=== PATIENT | female | born 1970 | race Caucasian/White ===

== ENCOUNTER 2017-09-03 15:21 | Outpatient (CLI) | payer OTHER ==
--- NOTE | 2017-09-10 10:23 | MMO ---
BILATERAL SCREENING MAMMOGRAMS: DATE: 09/03/17. HISTORY: A 46-year-old female patient presenting for screening mammography. This study is also interpreted with the assistance of computer-aided detection. COMPARISON: Studies obtained from [facility] on 11/19/13 and 12/24/14. FINDINGS: Scattered fibroglandular densities are seen in each breast. There are punctate benign-appearing calc ifications again seen in the right breast. Intramammary lymph nodes are seen in the upper outer left breast similar to prior exam. No new dominant mass or suspicious grouping of microcalcifications is seen in either breast. IMPRESSION: BI-RADS category 2, benign findings. Routine annual mammographic screening is recommended. BIRADS 2: Benign Finding(s) Routine annual screening mammography (for women over age 40) POS: EZEQUIEL
== END 2017-09-03 15:22 | disposition home or self-care (01) ==
LOC: SCSMAMMO 15:21
PROVIDERS: ATTEND Family Medicine
DX: Z12.31 Encounter for screening mammogram for malignant neoplasm of breast (principal)
CPT/HCPCS: 77067

== ENCOUNTER 2019-03-12 06:48 | Day surgery (SDC) | payer OTHER ==
[2019-03-11 10:48] VITALS: BMI 26.7
[2019-03-12] MEDS ORDERED: Lidocaine 1% PF 5 ML VIAL ONE (09:43)
[2019-03-12] MEDS ORDERED: PROPOFOL 200 MG/20 ML VIAL ONE (09:43)
--- NOTE | 2019-03-12 10:26 | OP ---
DATE OF PROCEDURE: 03/12/2019 PROCEDURE PERFORMED: Colonoscopy. PREMEDICATION: Given by Anesthesiology Department. PREPROCEDURE DIAGNOSES: 1. History of colon polyps. 2. Family history of colon cancer in second-degree relative. POSTPROCEDURE DIAGNOSIS: Normal colon exam. DESCRIPTION OF PROCEDURE: Written consents were obtained prior to procedure. After adequate sedation, rectal exam performed was normal. The endoscope was advanced to the cecum. The quality of the bowel prep was good. The cecum, ascending colon, hepatic flexure, transverse colon, splenic flexure, descending colon, and rectosigmoid colon all appeared normal. Retroflexion did not show any abnormality. The patient tolerated the procedure well. ASSESSMENT: Normal colonoscopy. RECOMMENDATION: Repeat colon screening in 10 years as her previous history of polyp was hyperplastic. Job ID: [id number]
--- NOTE | 2019-03-12 17:02 | OP ---
DATE OF PROCEDURE: 03/12/2019 PROCEDURE PERFORMED: Esophagogastroduodenoscopy. PREMEDICATION: Given by Anesthesiology Department. PREPROCEDURE DIAGNOSES: 1. Gastroesophageal reflux disease. 2. Symptoms not controlled on medication (ranitidine 150 mg b.i.d.). POSTPROCEDURE DIAGNOSIS: Normal upper endoscopy. DESCRIPTION OF PROCEDURE: Written consents were obtained prior to procedure. After adequate sedation, forward-viewing endoscope was advanced down the stomach under direct vision to the third portion of duodenum. The duodenum appeared normal. The bulb appeared normal. The pylorus was patent. The gastric antrum, body, fundus, and cardia all appeared normal. Retroflexion did not show any abnormality or hiatal hernia. The GE junction with regular Z-line is located at 36 cm from the incisors. The lower, mid, and upper esophagus appeared normal. The instrument was then fully removed. The patient tolerated the procedure well. ASSESSMENT: Normal upper endoscopy. RECOMMENDATION: 1. Start pantoprazole 40 mg p.o. daily. 2. Anti-reflux regimen. Job ID: [id number]
== END 2019-03-12 11:35 | disposition home or self-care (01) ==
LOC: SDC 06:48
PROVIDERS: ATTEND Internal Medicine Gastroenterology
DX: Z12.11 Encounter for screening for malignant neoplasm of colon (principal); K21.9 Gastro-esophageal reflux disease without esophagitis; Z79.899 Other long term (current) drug therapy; Z80.0 Family history of malignant neoplasm of digestive organs; Z88.5 Allergy status to narcotic agent; Z86.010 Personal history of colon polyps; Z91.048 Other nonmedicinal substance allergy status
CPT/HCPCS: J2001; J2704

== ENCOUNTER 2019-03-15 20:30 | Outpatient (CLI) | payer OTHER | END 2019-03-15 20:31 | disposition home or self-care (01) | LOC: SLEEPLAB 20:30 | PROVIDERS: ATTEND Family Medicine | DX: G47.33 Obstructive sleep apnea (adult) (pediatric) (principal); G47.00 Insomnia, unspecified; F41.9 Anxiety disorder, unspecified; F32.9 Major depressive disorder, single episode, unspecified; R53.83 Other fatigue; G47.10 Hypersomnia, unspecified | CPT/HCPCS: 95810 ==

== ENCOUNTER 2019-06-06 12:31 | Inpatient (IN) | payer OTHER ==
[2019-06-06 12:56] LABS: #Basophils 0.1 thou/uL (0.0-0.2); #Eosinphils 0.2 thou/uL (0.0-0.7); #Lymphocytes 2.7 thou/uL (1.20-3.40); #Monocytes 0.9 thou/uL (0.11-0.59); #Neutrophils 5.1 thou/uL (1.40-6.50); %Basophils 0.8 % (0.0-1.0); %Eosinophils 2.4 % (0.0-10.0); %Lymphocytes 29.8 % (21.0-51.0); %Monocytes 10.1 % (0.0-10.0); %Neutrophils 56.9 % (42.0-75.0); Hemoglobin 13.7 g/dL (12.0-16.0); Mean Corpuscular HGB CONC 34.3 g/dL (32.0-36.0); Mean Corpuscular Hemoglobin 32.3 pg (27.0-31.0); Mean Platelet Volume 7.4 fL (7.4-10.4); Platelet Count 346 thou/uL (130-400); RBC Distribution Width 11.6 % (11.5-14.5); Red Blood Cell (RBC) Count 4.24 mill/uL (4.20-5.40)
[2019-06-06 13:16] LABS: ALT (SGPT) 20 U/L (8-55); AST (SGOT) 21 U/L (5-34); Albumin 4.4 g/dL (3.5-5.0); Alkaline Phosphatase 94 U/L (40-110); Anion Gap 11 mmol/L (10-20); BUN (Urea Nitrogen) 11 mg/dL (7.0-18.7); Bilirubin, Total 0.3 mg/dL (0.2-1.2); Calc. Creatinine Clearance 0 mL/min (70-130); Calcium 9.6 mg/dL (7.8-10.44); Carbon Dioxide 30 mmol/L (22-29); Chloride 98 mmol/L (98-107); Estimated GFR-MDRD 74; Globulin 2.9 g/dL (2.4-3.5); Glucose 92 mg/dL (70-105); Protein, Total 7.3 g/dL (6.0-8.3); Sodium 137 mmol/L (136-145)
[2019-06-06 13:22] LABS: Potassium 2.1 mmol/L (3.5-5.1)
[2019-06-06] MEDS ORDERED: Potassium Chloride 20 MEQ TAB ONE (13:33)
[2019-06-06] MEDS ORDERED: Potassium Chloride 40 MEQ in Sodium Chloride 0.9% 250 ML 250 ML IVPB SCH (14:00)
--- NOTE | 2019-06-06 14:01 | RAD ---
XR Chest 1 View Portable HISTORY: Dyspnea COMPARISON: 01/10/2012 FINDINGS: The heart size is normal. The lungs are well expanded without focal areas of consolidation, pneumothorax or pleural effusions. IMPRESSION: No radiographic evidence of acute cardiopulmonary process.
[2019-06-06 17:01] LABS: Troponin I Less than 0.010 ng/mL (< 0.028)
[2019-06-06] MEDS ORDERED: Acetaminophen 325 MG TAB PO PRN (17:06)
--- NOTE | 2019-06-06 17:47 | HP ---
PRIMARY CARE PROVIDER: Dr. Jose Posada. CHIEF COMPLAINT: Low potassium. HISTORY OF PRESENT ILLNESS: Ms. Grant Brown is a pleasant 48-year-old lady, who was seen at [facility] on June 06, 2019, after she was sent to the emergency room by her textile supervisor. She reports that over the last several months, she has been feeling generalized weakness. She denies any other complaints. She was seen by Nephrology Service as outpatient and was found to have low potassium. She had investigations done to look into the etiology of low potassium, but so far there is no clear etiology. She was found to have ongoing low potassium and was advised by her textile supervisor to go to the emergency room. REVIEW OF SYSTEMS: All systems were reviewed and found to be negative except for the pertinent positives mentioned above. PAST MEDICAL HISTORY: 1. Anxiety. 2. Hypothyroidism. PAST SURGICAL HISTORY: 1. Cholecystectomy. 2. Hysterectomy. PSYCHIATRIC HISTORY: 1. Anxiety. 2. Depression. SOCIAL HISTORY: The patient is an ex-smoker. She denies alcohol use or recreational drug use. FAMILY HISTORY: Significant for diabetes mellitus. ALLERGIES: MORPHINE, ADHESIVE, AND LATEX GLOVES. CURRENT MEDICATIONS: 1. Pantoprazole 40 mg daily. 2. Atorvastatin 10 mg at bedtime. 3. Sertraline 50 mg daily. 4. Ranitidine 150 mg daily. 5. Bupropion 150 mg daily. PHYSICAL EXAMINATION: GENERAL: On examination, Ms. Grant Brown is awake and alert, not in acute distress. VITAL SIGNS: Blood pressure is 105/67, pulse 77, respiratory rate 16, and oxygen saturation 98% on room air. She is afebrile. EYES: No scleral icterus. No conjunctival pallor. ENT: Moist mucosal membranes. No oropharyngeal erythema or exudates. NECK: Supple, nontender. Trachea is midline. RESPIRATORY: Accessory muscles of breathing are not active. Chest wall movements are symmetric bilaterally. Lungs are clear to auscultation without wheeze, rhonchi, or crepitations. CARDIOVASCULAR: S1 and S2 are heard, regular. Peripheral pulses palpable. ABDOMEN: Soft, nontender. Bowel sounds are heard. NEUROLOGIC: Cranial nerves 2 through 12 are intact. MUSCULOSKELETAL: Power is 5/5 in all 4 extremities. SKIN: No rashes or subcutaneous nodules. LYMPHATIC: No cervical lymphadenopathy. PSYCHIATRIC: Normal mood, normal affect. The patient is oriented to person, place, and time. LABORATORY AND DIAGNOSTIC DATA: Ms. Grant Brown's labs and investigations were reviewed. Electrocardiogram by my review shows normal sinus rhythm, with lateral ST-segment depressions. Chest x-ray by my review does not show any pulmonary infiltrates. She has unremarkable CBC, normal sodium, decreased potassium of 2.1, elevated carbon dioxide of 30, and unremarkable LFTs. Magnesium is normal at 2.1. Troponin-I is normal. ASSESSMENT AND PLAN: Ms. Grant Brown is a pleasant 48-year-old lady, who was seen at [facility] on June 06, 2019. Her problem list includes: 1. Hypokalemia: Ms. Grant Brown is presenting with severe hypokalemia. She has received 40 mEq of potassium intravenously and 60 mEq orally. These medications will be continued every 3 hours, with frequently checking potassium levels. The treatments will be discontinued after her potassium is around 3.2. Nephrology Service will be consulted for opinion and help with management. 2. Dyslipidemia: Continue atorvastatin. 3. Anxiety and depression: Continue bupropion and sertraline. 4. Gastroesophageal reflux disease: Continue PPI. Many thanks for allowing me to participate in your patient's care. Please feel free to contact me with any questions or concerns. LEVEL OF RISK: High. LEVEL OF COMPLEXITY: High. Job ID: [id number]
[2019-06-06 18:06] LABS: Anion Gap 12 mmol/L (10-20); BUN (Urea Nitrogen) 12 mg/dL (7.0-18.7); Calc. Creatinine Clearance 0 mL/min (70-130); Carbon Dioxide 28 mmol/L (22-29); Chloride 99 mmol/L (98-107); Estimated GFR-MDRD 83; Glucose 125 mg/dL (70-105); Sodium 137 mmol/L (136-145)
[2019-06-06 18:07] LABS: Potassium 2.3 mmol/L (3.5-5.1)
[2019-06-06 19:26] LABS: Troponin I Less than 0.010 ng/mL (< 0.028)
[2019-06-06 19:34] LABS: Potassium 2.6 mmol/L (3.5-5.1)
[2019-06-06 19:43] VITALS: BMI 25.2
[2019-06-06] MEDS: Potassium Chloride 40 MEQ in Sodium Chloride 0.9% 250 ML 250 ML IVPB SCH (22:21)
[2019-06-06] MEDS: Potassium Chloride 20 MEQ TAB PO SCH ×2 (22:22→22:26)
[2019-06-06 23:28] LABS: Potassium 2.3 mmol/L (3.5-5.1)
--- NOTE | 2019-06-07 01:15 | CON ---
DATE OF CONSULTATION: REASON FOR CONSULTATION: Hypokalemia. HISTORY OF PRESENTING ILLNESS: This is a very pleasant 48-year-old female, who was admitted to the hospital for severe hypokalemia. The patient's potassium was 2. The patient has had a workup done by Dr. Gustafson. PAST MEDICAL HISTORY: Significant for history of cholecystectomy, cortisol insufficiency, chronic hypokalemia, Crohn disease. SOCIAL HISTORY: No alcohol or drug use. FAMILY HISTORY: Negative for ESRD. ALLERGIES: REVIEWED. HOME MEDICATION: List reviewed. Hospital medication reviewed. REVIEW OF SYSTEMS: 15-point review of systems was performed, negative except for positives noted above. GENERAL: HEAD: NECK: No swelling or lumps. NOSE: No epistaxis or discharge. EYES: No diplopia or pain. RESPIRATORY: CARDIOVASCULAR: GASTROINTESTINAL: /INTEGRATIVE MEDICINE PHYSICIAN: MUSCULOSKELETAL: No joint pain. NEUROPSYCHIATIC SYSTEMS: No suicidal ideation. No ideation. SKIN: Denies any rash or ulcer. CONSTITUTIONAL: No fever or chills. PHYSICAL EXAMINATION: CONSTITUTIONAL: The patient is awake and alert. VITAL SIGNS: Afebrile, pulse 75, breathing 16, blood pressure 130/70. GENERAL APPEARANCE AND MENTAL STATUS: Fair. HEAD/NECK: Normocephalic. Atraumatic. EYES: EOMI. No deformity. EARS: Clear. No ulcers. NOSE: Intact. No lesions. MOUTH: Clear. No discharge. THROAT: Clear. No exudate. LUNGS: Clear. No crackles. CARDIAC: S1, S2. No rub. ABDOMEN: Benign. Bowel sounds positive. GENITALIA/RECTUM: Zaragoza absent. BACK/EXTREMITIES: Edema 0+. NEUROLOGICAL: Alert and motor intact. SKIN: LYMPHATICS: LABORATORY DATA: Labs show potassium is 2.1. ASSESSMENT: Hypokalemia with alkalosis as well as elevated creatinine level with normal aldosterone level, could be possible Bartter or Gitelman syndrome versus enzymatic deficiency for cortisol synthesis. Basic workup for Bartter and Gitelman is pending. Hypertension not present. Medication based on GFR, appropriate. Job ID: [id number]
[2019-06-07 02:58] LABS: #Basophils 0.1 thou/uL (0.0-0.2); #Eosinphils 0.2 thou/uL (0.0-0.7); #Lymphocytes 2.2 thou/uL (1.20-3.40); #Monocytes 0.8 thou/uL (0.11-0.59); #Neutrophils 3.7 thou/uL (1.40-6.50); %Basophils 0.7 % (0.0-1.0); %Eosinophils 3.1 % (0.0-10.0); %Lymphocytes 32.3 % (21.0-51.0); %Neutrophils 52.9 % (42.0-75.0); Hemoglobin 11.7 g/dL (12.0-16.0); Mean Corpuscular HGB CONC 35.8 g/dL (32.0-36.0); Mean Corpuscular Hemoglobin 33.5 pg (27.0-31.0); Mean Corpuscular Volume 93.6 fL (78.0-98.0); Mean Platelet Volume 7.3 fL (7.4-10.4); Platelet Count 278 thou/uL (130-400); RBC Distribution Width 11.7 % (11.5-14.5); Red Blood Cell (RBC) Count 3.49 mill/uL (4.20-5.40)
[2019-06-07 03:17] LABS: Anion Gap 10 mmol/L (10-20); BUN (Urea Nitrogen) 9 mg/dL (7.0-18.7); Calc. Creatinine Clearance 135 mL/min (70-130); Calcium 8.3 mg/dL (7.8-10.44); Carbon Dioxide 26 mmol/L (22-29); Chloride 107 mmol/L (98-107); Estimated GFR-MDRD Greater than 90; Glucose 96 mg/dL (70-105); Sodium 140 mmol/L (136-145)
[2019-06-07] MEDS ORDERED: Ondansetron PF 4 MG/2 ML Vial SLOW IVP PRN (04:06)
[2019-06-07] MEDS: Potassium Chloride 40 MEQ in Sodium Chloride 0.9% 250 ML 250 ML IVPB SCH ×2 (04:43→12:11)
[2019-06-07] MEDS: Potassium Chloride 20 MEQ TAB PO SCH ×4 (04:48→18:00)
[2019-06-07] MEDS ORDERED: Enoxaparin Sodium 40 MG/0.4 ML SYRINGE SC SCH (09:00)
--- NOTE | 2019-06-07 12:31 | PRG ---
DATE OF SERVICE: 06/07/2019 SUBJECTIVE: A 48-year-old female being seen for hypokalemia. The patient denies any nausea, vomiting, or chest pain. OBJECTIVE: GENERAL: The patient is awake and alert. VITAL SIGNS: Afebrile, pulse 75, breathing 16, blood pressure was 88/56. GENERAL APPEARANCE AND MENTAL STATUS: Fair. HEAD/NECK: Normocephalic. Atraumatic. EYES: EOMI. No deformity. EARS: Clear. No ulcers. NOSE: Intact. No lesions. MOUTH: Clear. No discharge. THROAT: Clear. No exudate. LUNGS: Clear. No crackles. CARDIAC: S1, S2. No rub. ABDOMEN: Benign. Bowel sounds positive. GENITALIA/RECTUM: Zaragoza absent. BACK/EXTREMITIES: Edema 0+. NEUROLOGICAL: Alert and motor intact. SKIN: LYMPHATICS: General: Physical examination. LABORATORY DATA: Reviewed. ASSESSMENT AND PLAN: 1. Hypokalemia, improving. Continue aggressive potassium supplementation. 2. Metabolic alkalosis, improved. 3. Anemia, stable. 4. Medication based on GFR appropriate. Job ID: [id number]
[2019-06-07] MEDS ORDERED: Sodium Chloride 0.9% 1,000 ML IV SCH (17:15)
[2019-06-07] MEDS ORDERED: Lorazepam 2 MG/ML VIAL SLOW IVP PRN (17:29)
[2019-06-07] MEDS ORDERED: Bupropion 150 MG SR TAB PO SCH (17:30)
[2019-06-07] MEDS ORDERED: Potassium Chloride 20 MEQ TAB PO SCH (17:30)
--- NOTE | 2019-06-07 17:33 | PDOC.HOSPP ---
- Subjective Encounter Date: 06/07/19 Encounter Time: 08:00 Subjective: no overnight events. Feeling well and has no complaints. Continues to have resistant hypokalemia with pending workup. - Objective Vital Signs & Weight: Vital Signs (12 hours) Temp Pulse Resp BP Pulse Ox 06/07/19 11:42 98.6 F 62 18 93/47 L 99 06/07/19 07:32 97.8 F 65 16 88/53 L 99 Weight Weight 180 lb 11.2 oz Result Diagrams: 06/07/19 02:51 06/07/19 02:51 Hospitalist ROS - Review of Systems Constitutional: denies: fever, chills, sweats, weakness, malaise, other Respiratory: denies: cough, dry, shortness of breath, hemoptysis, SOB with excertion, pleuritic pain, sputum, wheezing, other Cardiovascular: denies: chest pain, palpitations, orthopnea, paroxysmal noc. dyspnea, edema, light headedness, other Gastrointestinal: denies: nausea, vomiting, abdominal pain, diarrhea, constipation, melena, hematochezia, other Genitourinary: denies: dysuria, frequency, incontinence, hematuria, retention, other Neurological: denies: weakness, numbness, incoordination, change in speech, confusion, seizures, other - Medication Medications: Active Medications Generic Name Dose Route Start Last Admin Trade Name Freq PRN Reason Stop Dose Admin Enoxaparin Sodium 40 mg 06/07/19 09:00 06/07/19 08:08 Lovenox SC 40 mg 0900 KIRAN Administration Ondansetron HCl 4 mg 06/07/19 04:06 06/07/19 04:16 Zofran SLOW IVP 4 mg Q4H PRN Administration Nausea/Vomiting - Exam General Appearance: NAD, awake alert Eye: PERRL ENT: normocephalic atraumatic, no oropharyngeal lesions, moist mucosa Neck: no JVD Heart: RRR, no murmur, no gallops, no rubs, normal peripheral pulses Respiratory: CTAB, no wheezes, no rales, no ronchi, normal chest expansion, no tachypnea, normal percussion Gastrointestinal: soft, non-tender, non-distended, normal bowel sounds, no palpable masses Extremities: no cyanosis, no edema Skin: normal turgor, no lesions, no rashes Neurological: cranial nerve grossly intact, normal sensation to touch, no weakness, no focal deficits, no new deficit Musculoskeletal: normal tone, normal strength, no muscle wasting Psychiatric: normal affect, normal behavior, A&O x 3 Hosp A/P - Plan #resistant chronic hypokalemia -initially presented with metabolic alkalosis, severe hypokalemia, borderline low BP (also currently) -potassium continue to be low despite appropriate IV supplementation -so far studies partially c/w bartter/gitelman; though aldosterone wnl despite hyperreninemia -nephrology onboard #anxiety -restarted home anxiety medications Plan: -potassium supplementation and check q4h; also check Mg -bed rest with assistance to ambulate -strict I/O -follow fluid status and HD stability; bolus / maintenance NS as necessary -urine calcium and creatinine dispo/code status: full code GI: no indication DVT: heparin subq
[2019-06-07] MEDS ORDERED: buPROPion 75 MG TAB PO SCH (18:00)
[2019-06-07 18:07] LABS: Potassium 4.2 mmol/L (3.5-5.1)
[2019-06-07] MEDS: Heparin 5,000 UNITS/ML VIAL SC SCH (20:04)
[2019-06-07] MEDS: Sodium Chloride 0.9% 1,000 ML IV SCH (20:10)
[2019-06-07] MEDS ORDERED: Non-Formulary Item 1 EACH (Bupropion Hcl [Bupropion Hcl Sr] 1 TAB) PO SCH (21:00)
[2019-06-08 04:57] LABS: Anion Gap 9 mmol/L (10-20); BUN (Urea Nitrogen) 5 mg/dL (7.0-18.7); Calc. Creatinine Clearance 142 mL/min (70-130); Calcium 8.1 mg/dL (7.8-10.44); Carbon Dioxide 24 mmol/L (22-29); Chloride 114 mmol/L (98-107); Estimated GFR-MDRD Greater than 90; Glucose 95 mg/dL (70-105); Magnesium 2.1 mg/dL (1.6-2.6); Sodium 143 mmol/L (136-145)
[2019-06-08] MEDS: Sodium Chloride 0.9% 1,000 ML IV SCH (05:11)
[2019-06-08] MEDS: Heparin 5,000 UNITS/ML VIAL SC SCH (08:21)
[2019-06-08] MEDS ORDERED: Sodium Phosphate 30 MMOL in Sodium Chloride 0.9% 250 ML 250 ML IVPB SCH (09:00)
[2019-06-08] MEDS ORDERED: buPROPion 75 MG TAB PO SCH (09:00)
[2019-06-08 11:41] VITALS: TEMP 98.1
[2019-06-08 14:38] LABS: Potassium 3.5 mmol/L (3.5-5.1)
[2019-06-08 15:39] VITALS: BP 102/55
--- NOTE | 2019-06-08 16:01 | PRG ---
DATE OF SERVICE: 06/08/2019 SUBJECTIVE: A 48-year-old female being seen for hypokalemia. The patient denied nausea, vomiting, or chest pain. OBJECTIVE: CONSTITUTIONAL: On exam, the patient is awake and alert. VITAL SIGNS: Afebrile, pulse 68, breathing 16, and blood pressure 101/53. GENERAL APPEARANCE AND MENTAL STATUS: Fair. HEAD/NECK: Normocephalic. Atraumatic. EYES: EOMI. No deformity. EARS: Clear. No ulcers. NOSE: Intact. No lesions. MOUTH: Clear. No discharge. THROAT: Clear. No exudate. LUNGS: Clear. No crackles. CARDIAC: S1, S2. No rub. ABDOMEN: Benign. Bowel sounds positive. GENITALIA/RECTUM: Zaragoza absent. BACK/EXTREMITIES: Edema 0+. NEUROLOGICAL: Alert and motor intact. SKIN: LYMPHATICS: LABORATORY DATA: Hemoglobin 11.7. Potassium is 3.5, creatinine 0.6. Phosphorus is 2. ASSESSMENT AND RECOMMENDATIONS: 1. Hypokalemia, resolved. 2. Hypophosphatemia. Recommend phosphorus. 3. Hypocalciuria. Hypokalemia most likely because of some endocrinological issue. I would recommend tertiary care Endocrinology followup because the patient has a high renin state as well as a relatively low aldosterone state likely an enzymatic defect . Job ID: [id number]
--- NOTE | 2019-06-09 08:50 | DIS ---
DATE OF ADMISSION: 06/06/2019 DATE OF DISCHARGE: 06/08/2019 HOSPITAL COURSE: Ms. Burns is a 48-year-old female with a medical history of hypothyroidism, anxiety, and recurrent hypokalemia, who presented for generalized weakness for the past several months. On presentation, she was found to have severely reduced potassium levels. Nephrology was consulted and workup was started, and it was thought that she may have Bartter or Gitelman syndromes, however, workup showed that she has elevated renin levels with low aldosterone levels, which is inconsistent with the syndromes and other nephrologic etiologies. She was supplemented with potassium, magnesium and phosphorus, and electrolytes remained within normal limits 24 hours prior to discharge. She was discharged on supplemented potassium and phosphorus based on Nephrology recommendations and was requested to make an appointment with MD Cruz for further dietetic intern workup of her persistent hypokalemia. She was discharged home hemodynamically stable and feeling well. DISCHARGE PHYSICAL EXAMINATION: GENERAL: On exam, she was in no apparent distress. Alert and oriented x3. HEENT: She had no thyromegaly, PERRL. CARDIAC: Regular rate and rhythm. No murmurs or gallops. LUNG: Clear to auscultation bilaterally. No wheezing, rales, or rhonchi. ABDOMEN: Nondistended, nontender. Normal bowel sounds. EXTREMITIES: No edema. NEUROLOGIC: Strength 5/5 throughout extremities. Cranial nerves intact. PSYCHIATRIC: Normal mood and affect. Alert and oriented x3. ASSESSMENT AND PLAN: Ms. Burns is a 48-year-old female with a medical history of hypothyroidism, who presented with persistent hypokalemia. Following workup and consultation with Nephrology, the etiology seemed to be unrelated to the kidneys directly. The patient was educated regarding her most likely diagnosis, and was requested to make an appointment with an [facility] Cruz dietetic intern as soon as possible. Meanwhile, she was discharged and requested to match input to output as well as supplement electrolytes as directed. Job ID: [id number]
== END 2019-06-08 15:40 | disposition home or self-care (01) | DRG 641 ==
LOC: ERS 12:31 → 2NO 15:55
PROVIDERS: ADMIT Internal Medicine; ATTEND Internal Medicine
DX: E87.6 Hypokalemia (principal); E03.9 Hypothyroidism, unspecified; E78.5 Hyperlipidemia, unspecified; E83.39 Other disorders of phosphorus metabolism; E87.3 Alkalosis; D64.9 Anemia, unspecified; F41.9 Anxiety disorder, unspecified; F32.9 Major depressive disorder, single episode, unspecified; K21.9 Gastro-esophageal reflux disease without esophagitis; R03.1 Nonspecific low blood-pressure reading; Z88.5 Allergy status to narcotic agent; Z91.09 Other allergy status, other than to drugs and biological substances; Z79.899 Other long term (current) drug therapy; Z91.040 Latex allergy status; Z90.710 Acquired absence of both cervix and uterus; Z90.49 Acquired absence of other specified parts of digestive tract
CPT/HCPCS: 36415; 71045; 80048; 82088; 82340; 82436; 82570; 83735; 84100; 84132; 84133; 84244; 84484; 85025; 93005; J1644; J1650; J2405; J3480; J7050

== ENCOUNTER 2019-08-15 10:43 | Observation (INO) | payer OTHER ==
[2019-08-15 11:14] LABS: #Basophils 0.1 thou/uL (0.0-0.2); #Eosinphils 0.2 thou/uL (0.0-0.7); #Lymphocytes 2.7 thou/uL (1.20-3.40); #Monocytes 0.8 thou/uL (0.11-0.59); #Neutrophils 5.4 thou/uL (1.40-6.50); %Basophils 0.9 % (0.0-1.0); %Eosinophils 2.2 % (0.0-10.0); %Lymphocytes 29.8 % (21.0-51.0); %Monocytes 8.4 % (0.0-10.0); %Neutrophils 58.7 % (42.0-75.0); Hemoglobin 13.5 g/dL (12.0-16.0); Mean Corpuscular HGB CONC 34.2 g/dL (32.0-36.0); Mean Corpuscular Hemoglobin 32.2 pg (27.0-31.0); Mean Corpuscular Volume 94.2 fL (78.0-98.0); Mean Platelet Volume 7.5 fL (7.4-10.4); Platelet Count 352 thou/uL (130-400); RBC Distribution Width 12.1 % (11.5-14.5); Red Blood Cell (RBC) Count 4.19 mill/uL (4.20-5.40); White Blood Cell (WBC) Count 9.2 thou/uL (4.8-10.8)
[2019-08-15 11:24] LABS: ALT (SGPT) 22 U/L (8-55); AST (SGOT) 21 U/L (5-34); Albumin 4.4 g/dL (3.5-5.0); Alkaline Phosphatase 98 U/L (40-110); Anion Gap 14 mmol/L (10-20); BUN (Urea Nitrogen) 9 mg/dL (7.0-18.7); Bilirubin, Total 0.4 mg/dL (0.2-1.2); Calc. Creatinine Clearance 0 mL/min (70-130); Calcium 9.4 mg/dL (7.8-10.44); Carbon Dioxide 23 mmol/L (22-29); Chloride 103 mmol/L (98-107); Estimated GFR-MDRD 90; Globulin 2.9 g/dL (2.4-3.5); Glucose 88 mg/dL (70-105); Magnesium 2.3 mg/dL (1.6-2.6); Protein, Total 7.3 g/dL (6.0-8.3); Sodium 138 mmol/L (136-145)
[2019-08-15 11:34] LABS: Potassium 2.4 mmol/L (3.5-5.1)
[2019-08-15] MEDS ORDERED: Potassium Chloride 20 MEQ TAB ONE ×2 (12:10→14:18)
[2019-08-15] MEDS ORDERED: Potassium Chloride 20 MEQ TAB PO SCH ×2 (12:30→22:45)
[2019-08-15] MEDS ORDERED: Potassium Chloride 20 MEQ in Premix Bag 1 BAG IVPB SCH (13:00)
[2019-08-15] MEDS ORDERED: D5 1/2 NS w/20 mEq KCL 0 ML ONE ×2 (13:25→13:26)
[2019-08-15] MEDS ORDERED: Potassium Chloride 20 MEQ/100 ML PREMIX BAG ONE (13:29)
[2019-08-15] MEDS ORDERED: Potassium Chloride 40 MEQ in Sodium Chloride 0.9% 500 ML IVPB SCH (13:45)
--- NOTE | 2019-08-15 13:56 | CON ---
DATE OF CONSULTATION: REASON FOR CONSULTATION: Hypokalemia. HISTORY OF PRESENT ILLNESS: A very pleasant 48-year-old female, who presented to the hospital with weakness and a potassium of 2. The patient has been admitted. The patient has a history of cortisol insufficiency and chronic hypokalemia. The patient denies nausea, vomiting, or chest pain. PAST MEDICAL HISTORY: Cholecystectomy, cortisol insufficiency, chronic , and Crohn disease. SOCIAL HISTORY: No alcohol or drug use. ALLERGIES: REVIEWED. MEDICATIONS: Home medications, list reviewed. Hospital medications, list reviewed. FAMILY HISTORY: Negative for ESRD. REVIEW OF SYSTEMS: 15-point review of systems was performed and negative except for positives noted above. HEENT: Eyes intact, no diplopia. Ears: No hearing loss or earache. Nose: No discharge or bleeding. Chest: No cough or phlegm. Abdomen: No nausea or vomiting. Genitourinary: No hematuria. No Zaragoza catheter. Musculoskeletal: No low back pain. No joint swelling or pain. Neurological: No syncope. No seizures. Skin: No complaints of rash or itching. Psychiatric: No depression. Constitutional: No weight loss or loss of appetite. PHYSICAL EXAMINATION: GENERAL: The patient is awake and alert. VITAL SIGNS: Afebrile, pulse 80, breathing 16, and blood pressure . HEENT: Head normocephalic and atraumatic. Eyes intact, no ulcers. Nose intact, no ulcers. Ears intact, no ulcers. Neck: Supple. No JVD. Chest: Symmetrical and clear. Cardiovascular: Shows S1 and S2, no rub, no murmur. Gastrointestinal: Abdomen is soft, bowel sounds positive. Extremities: Show no edema or ulcers. Skin: Shows no rash or petechiae. Musculoskeletal: Shows no joint swelling or stiffness. Genitourinary: Shows no Zaragoza or CVA tenderness. Neurologic: Motor intact. Cranial nerves intact. LABORATORY DATA: Showed potassium is 2.4. ASSESSMENT: 1. Chronic kidney disease, stage 1, stable. 2. Hypokalemia. Recommend aggressive potassium replacement. 3. Hypertension, stable. 4. We would also recommend checking magnesium. Job ID: [id number]
[2019-08-15] MEDS ORDERED: Acetaminophen 325 MG TAB PO PRN (14:56)
[2019-08-15 15:25] VITALS: BMI 24.9
[2019-08-15 15:49] LABS: Anion Gap 13 mmol/L (10-20); BUN (Urea Nitrogen) 9 mg/dL (7.0-18.7); Calc. Creatinine Clearance 123 mL/min (70-130); Calcium 9.3 mg/dL (7.8-10.44); Carbon Dioxide 25 mmol/L (22-29); Chloride 105 mmol/L (98-107); Estimated GFR-MDRD 87; Glucose 131 mg/dL (70-105); Potassium 3.1 mmol/L (3.5-5.1); Sodium 140 mmol/L (136-145)
[2019-08-15 19:04] LABS: Creatinine, Urine 165.68 mg/dL (47-110); Sodium, Urine Less than 20 mmol/L (Not Available)
[2019-08-15 19:12] LABS: Anion Gap 9 mmol/L (10-20); BUN (Urea Nitrogen) 9 mg/dL (7.0-18.7); Calc. Creatinine Clearance 123 mL/min (70-130); Calcium 8.8 mg/dL (7.8-10.44); Carbon Dioxide 27 mmol/L (22-29); Chloride 107 mmol/L (98-107); Estimated GFR-MDRD 87; Glucose 113 mg/dL (70-105); Potassium 3.1 mmol/L (3.5-5.1); Sodium 140 mmol/L (136-145)
[2019-08-15] MEDS: Bupropion 150 MG SR TAB PO SCH (20:24)
[2019-08-15] MEDS ORDERED: Atorvastatin Calcium 10 MG TAB PO SCH (21:00)
--- NOTE | 2019-08-16 00:31 | HP ---
CHIEF COMPLAINT: Generalized body aches and pains and abnormal labs. HISTORY OF PRESENT ILLNESS: The patient is a 48-year-old female, who was sent from her psychiatry teacher's office for a low potassium. The patient states that she has a history of low potassium, this has been ongoing for the past few years now. She has had multiple workups, which have not really found the etiology of her low potassium. She has been seeing Nephrology for the past year and also has been following up with Endocrinology. She denies any shortness of breath. She did have some chest tightness today, however, currently does not have any. She has been complaining of generalized fatigue and also feels at times that she cannot focus and has some loss of words at times. Denies any sick contacts or any diarrhea. Denies taking any [id number] medications. PAST MEDICAL HISTORY: She has a history of depression and low potassium or hypokalemia. FAMILY HISTORY: None. PAST SURGICAL HISTORY: She has had a cholecystectomy and radical hysterectomy. She has also had anal fistula removed. SOCIAL HISTORY: She smokes about 5 cigarettes a day. Occasional alcohol use. Denies any drug use. She is a full code. REVIEW OF SYSTEMS: All negative except for the ones mentioned in the HPI. PHYSICAL EXAMINATION: VITAL SIGNS: Temperature 98.2, pulse 80, respirations 20, 98% on room air, blood pressure 102/67. GENERAL: She is awake, alert, and oriented x3. Does not appear in distress. CV: S1 and S2 present. No murmurs, rubs, or gallops. ABDOMEN: Soft and nontender. Bowel sounds are present x2. EXTREMITIES: No edema. Pedal pulses present x2. NEUROVASCULAR: No focal deficits noted. SKIN: No cuts, lesions, or bruises noted. LABORATORY DATA: WBC of 9.2, hemoglobin of 13.5, hematocrit of 39.5, platelets of 352. Chemistry; sodium of 138, potassium of 2.4, BUN of 9, creatinine 0.69. LFTs are normal. EKG did not show any acute abnormalities. ASSESSMENT AND PLAN: The patient is a 48-year-old female, who presents to the hospital with hypokalemia. 1. Hypokalemia, unclear etiology. The patient states that she has had a 24-hour potassium collection. Also, she recently had a serum cortisol, I have repeated however her serum cortisol, this was done on 08/06, it was 8.80 and also she has had an ACTH, which was 7.7, was within normal limits. I will also add a TSH for the morning. She is currently getting potassium replacement. Her magnesium was normal. The patient has had a CAT scan done according to Nephrology and this was done, I believe, as an outpatient and according to the psychiatry teacher, it was normal. She was supposed to follow up with [facility] Cruz, however, unable to do so since the MD Cruz did not accept the patient's insurance. We will replace the potassium and she also had a workup for Bartter and Gitelman syndrome, which was also negative. 2. Depression. We will continue her home medications. I did evaluate some of her medications, nothing that would cause her potassium to be that low. We will recheck her renin and aldosterone and also, we will check a random urine sodium, urine chloride, urine creatinine per Nephrology recommendation. We will also consult Nephrology. Job ID: [id number]
[2019-08-16 04:36] LABS: #Basophils 0.1 thou/uL (0.0-0.2); #Eosinphils 0.2 thou/uL (0.0-0.7); #Lymphocytes 2.2 thou/uL (1.20-3.40); #Monocytes 0.6 thou/uL (0.11-0.59); %Lymphocytes 36.5 % (21.0-51.0); %Monocytes 9.4 % (0.0-10.0); %Neutrophils 49.2 % (42.0-75.0); Hemoglobin 11.6 g/dL (12.0-16.0); Mean Corpuscular HGB CONC 33.1 g/dL (32.0-36.0); Mean Corpuscular Hemoglobin 32.1 pg (27.0-31.0); Mean Corpuscular Volume 96.9 fL (78.0-98.0); Mean Platelet Volume 7.6 fL (7.4-10.4); Platelet Count 285 thou/uL (130-400); RBC Distribution Width 12.2 % (11.5-14.5); Red Blood Cell (RBC) Count 3.62 mill/uL (4.20-5.40)
[2019-08-16 04:57] LABS: Anion Gap 12 mmol/L (10-20); BUN (Urea Nitrogen) 6 mg/dL (7.0-18.7); Calc. Creatinine Clearance 143 mL/min (70-130); Calcium 8.5 mg/dL (7.8-10.44); Carbon Dioxide 19 mmol/L (22-29); Chloride 111 mmol/L (98-107); Estimated GFR-MDRD Greater than 90; Glucose 87 mg/dL (70-105); Potassium 3.6 mmol/L (3.5-5.1); Sodium 138 mmol/L (136-145)
[2019-08-16] MEDS ORDERED: Ondansetron PF 4 MG/2 ML Vial SLOW IVP PRN (06:26)
[2019-08-16] MEDS: Bupropion 150 MG SR TAB PO SCH (07:56)
[2019-08-16 08:05] VITALS: BP 98/68; TEMP 98
[2019-08-16] MEDS ORDERED: Enoxaparin Sodium 40 MG/0.4 ML SYRINGE SC SCH (09:00)
--- NOTE | 2019-08-16 13:50 | PRG ---
DATE OF SERVICE: 08/16/2019 SUBJECTIVE: A 48-year-old female, being seen for hypokalemia. The patient denies any nausea, vomiting, or chest pain. OBJECTIVE: GENERAL: The patient is awake and alert. VITAL SIGNS: Afebrile, pulse 75, breathing 16, blood pressure was 98/68. HEENT: Head normocephalic and atraumatic. Eyes intact, no ulcers. Nose intact, no ulcers. Ears intact, no ulcers. Neck: Supple. No JVD. Chest: Symmetrical and clear. Cardiovascular: Shows S1 and S2, no rub, no murmur. Gastrointestinal: Abdomen is soft, bowel sounds positive. Extremities: Show no edema or ulcers. Skin: Shows no rash or petechiae. Musculoskeletal: Shows no joint swelling or stiffness. Genitourinary: Shows no Zaragoza or CVA tenderness. Neurologic: Motor intact. Cranial nerves intact. LABORATORY DATA: Labs show potassium 3.6. ASSESSMENT AND PLAN: 1. Stage 1 chronic kidney disease, stable. 2. Hypertension, stable. 3. Anemia, stable. Medication based on GFR appropriate. The patient will follow up with Dr. Gustafson in 1 week. Job ID: [id number]
--- NOTE | 2019-08-18 07:26 | DIS ---
DATE OF ADMISSION: 08/15/2019 DATE OF DISCHARGE: 08/16/2019 DISCHARGE DISPOSITION: Home. PRIMARY DISCHARGE DIAGNOSES: Hypokalemia, metabolic acidosis, depression. PROCEDURES DONE DURING HOSPITALIZATION: H and H 11 and 35, platelet count 285. Had a potassium of 2.4 on admission, discharge numbers of 3.6. BUN 6, creatinine 0.6, serum bicarb 19. TSH 1.23. Serum cortisol this morning was 11. DISCHARGE PLAN: The patient to follow up with Dr. Avis Howard, sandwich hand in 10 days; primary care physician, Dr. Posada in 1 week; and Dr. Gustafson in 1 week. BRIEF COURSE DURING HOSPITALIZATION: The patient initially was sent over from her pest control service technician's office with complaints of generalized body pains and aches and low potassium. The patient has had known history of hypokalemia for last 1 year and has been having multiple workups done. She has recently seen an sandwich hand in [facility]. The sandwich hand is coordinating with her pest control service technician to find a cause for her hypokalemia. The patient has been advised to follow up with her sandwich hand in 10 days. Her potassium was replaced and she is hemodynamically stable. Please note I have seen and examined the patient on the day of discharge. She is ambulating and eating well. No nausea or vomiting. She is wanting to go home and will be shortly discharged home. Job ID: [id number]
[2019-08-19 12:37] LABS: Renin Activity 10.289 ng/mL/hr (0.167-5.380)
== END 2019-08-16 11:14 | disposition home or self-care (01) ==
LOC: ERS 10:43 → 2SE 13:47
PROVIDERS: ADMIT Internal Medicine; ATTEND Internal Medicine
DX: E87.6 Hypokalemia (principal); E87.2 Acidosis; F32.9 Major depressive disorder, single episode, unspecified; F17.210 Nicotine dependence, cigarettes, uncomplicated; I12.9 Hypertensive chronic kidney disease with stage 1 through stage 4 chronic kidney disease, or unspecified chronic kidney disease; N18.1 Chronic kidney disease, stage 1; D63.1 Anemia in chronic kidney disease; K50.90 Crohn's disease, unspecified, without complications; Z79.899 Other long term (current) drug therapy; Z88.5 Allergy status to narcotic agent; Z91.040 Latex allergy status; Z91.048 Other nonmedicinal substance allergy status
CPT/HCPCS: 36415; 80048; 82088; 82436; 82533; 82570; 83735; 84100; 84244; 84300; 84443; 85025; 93005; 96365; 96366; 96372; 96375; G0378; J1650; J2405; J3480; J7030

== ENCOUNTER 2019-10-03 09:19 | Inpatient (IN) | payer OTHER ==
[2019-10-03 10:18] LABS: #Basophils 0.1 thou/uL (0.0-0.2); #Eosinphils 0.2 thou/uL (0.0-0.7); #Lymphocytes 2.3 thou/uL (1.20-3.40); #Monocytes 0.7 thou/uL (0.11-0.59); #Neutrophils 4.8 thou/uL (1.40-6.50); %Basophils 0.8 % (0.0-1.0); %Eosinophils 2.7 % (0.0-10.0); %Lymphocytes 28.3 % (21.0-51.0); %Monocytes 8.8 % (0.0-10.0); %Neutrophils 59.4 % (42.0-75.0); Hemoglobin 12.5 g/dL (12.0-16.0); Mean Corpuscular HGB CONC 34.3 g/dL (32.0-36.0); Mean Corpuscular Hemoglobin 32.4 pg (27.0-31.0); Mean Corpuscular Volume 94.6 fL (78.0-98.0); Mean Platelet Volume 7.5 fL (7.4-10.4); Platelet Count 308 thou/uL (130-400); RBC Distribution Width 11.6 % (11.5-14.5); Red Blood Cell (RBC) Count 3.86 mill/uL (4.20-5.40)
[2019-10-03 10:41] LABS: ALT (SGPT) 18 U/L (8-55); AST (SGOT) 18 U/L (5-34); Alkaline Phosphatase 80 U/L (40-110); Anion Gap 11 mmol/L (10-20); BUN (Urea Nitrogen) 7 mg/dL (7.0-18.7); Bilirubin, Total 0.3 mg/dL (0.2-1.2); Calc. Creatinine Clearance 0 mL/min (70-130); Carbon Dioxide 31 mmol/L (22-29); Chloride 100 mmol/L (98-107); Estimated GFR-MDRD 83; Globulin 2.7 g/dL (2.4-3.5); Glucose 115 mg/dL (70-105); Protein, Total 6.7 g/dL (6.0-8.3); Sodium 139 mmol/L (136-145)
[2019-10-03 10:55] LABS: Potassium 2.5 mmol/L (3.5-5.1)
[2019-10-03] MEDS ORDERED: Magnesium 2 GM/50 ML BAG (IN WATER) ONE (11:44)
[2019-10-03] MEDS ORDERED: NS 0.9% w/ 40 MEQ KCL 1,000 ML IV SCH ×2 (11:45→12:00)
[2019-10-03 14:20] VITALS: BMI 26.2
[2019-10-03] MEDS ORDERED: Acetaminophen 325 MG TAB PO PRN (16:17)
[2019-10-03] MEDS: Potassium Chloride 20 MEQ TAB PO SCH ×2 (17:12→20:57)
[2019-10-03] MEDS: NS 0.9% w/ 40 MEQ KCL 1,000 ML IV SCH ×2 (17:42→20:57)
--- NOTE | 2019-10-03 18:44 | CON ---
DATE OF CONSULTATION: 10/03/2019 CONSULTING PHYSICIAN: Dr. Teresa Nazario. REASON FOR CONSULTATION: Hypokalemia. REASON FOR ADMISSION: Abnormal labs. HISTORY OF PRESENT ILLNESS: This is a 48-year-old female with history of depression, hypokalemia, came to the hospital with abnormal labs. She had lab work done. Her potassium was 2.3. She had been on workup for hypokalemia, which was found to be nonrenal in cause, but we will repeat some labs. The patient denies any symptoms. She has been taking potassium 4 times a day and reports no GI symptoms. PAST MEDICAL HISTORY: Positive for depression and hypokalemia. PAST SURGICAL HISTORY: Cholecystectomy and hysterectomy. HOME MEDICATIONS: Reviewed. ALLERGIES: LATEX, ADHESIVE, AND MORPHINE. SOCIAL HISTORY: She smokes 5 cigarettes per day. Occasional alcohol use. FAMILY HISTORY: No history of kidney disease. REVIEW OF SYSTEMS: CONSTITUTIONAL: Negative for weight loss or gain, ability to conduct usual activities. SKIN: Negative for rash, itching. EYES: Negative for double vision, pain. ENT/MOUTH: Negative for nose bleeding, neck stiffness, pain, tenderness. CARDIOVASCULAR: Negative for palpitations, dyspnea on exertion, orthopnea. RESPIRATORY: Negative for shortness of breath, wheezing, cough, hemoptysis, fever or night sweats. GASTROINTESTINAL: Negative for poor appetite, abdominal pain, heartburn, nausea, vomiting, constipation, or diarrhea. GENITOURINARY: Negative for urgency, frequency, dysuria, nocturia. MUSCULOSKELETAL: Negative for pain, swelling. NEUROLOGIC/PSYCHIATRIC: Negative for anxiety, depression. ALLERGY/IMMUNOLOGIC: Negative for skin rash, bleeding tendency. PHYSICAL EXAMINATION: GENERAL: This is a thin built female, in no apparent distress. VITAL SIGNS: Reviewed. HEENT: Atraumatic, normocephalic. Oral mucosa is moist. NECK: Supple. CV: S1 and S2, rate normal. RESPIRATORY: Clear. GI: Abdomen is soft. MUSCULOSKELETAL: No edema. DERMATOLOGIC: No skin rash. NEUROLOGIC: Alert and awake. PSYCHIATRIC: Mood and affect normal. LABORATORY DATA: Hemoglobin is 12.5. Potassium 2.5, bicarb is 31, BUN 7, creatinine is 0.7. ASSESSMENT AND PLAN: 1. Hypokalemia. We will check urine studies. The last few times, the urine study suggested nonrenal cause. We will recheck again. 2. Alkalosis. We will check urine chloride too. 3. Edema, controlled. 4. Hypertension. 5. Plan is to replace potassium and recheck urine study. We will continue to follow. Thank you for the consult. The patient was seen in the ER. Job ID: [id number]
--- NOTE | 2019-10-03 19:04 | HP ---
PRIMARY CARE PHYSICIAN: Jose Posada MD SATURATOR OPERATOR: Villa Aggarwal MD YARDMASTER: Ludwig Gustafson MD CHIEF COMPLAINT: My potassium level is low. HISTORY OF PRESENT ILLNESS: Ms. Burns is a very pleasant 48-year-old female, who has a history of hypokalemia, which she says was diagnosed about 2 years ago. She recently had a flare up of the hypokalemia and was admitted to the hospital, where her potassium was corrected and then she was discharged. She says that she was told and has been taking the potassium chloride 20 mEq eight times a day and went to have lab work done in anticipation for her followup with Dr. Aggarwal. She was called and told that her potassium was low and that she needed to come to the hospital. When she arrived to the ER, potassium level was drawn and it was found to be 2.5, and she is being admitted for replacement. She says that her only symptoms are just feeling exhausted. She denies any cramping in her muscles. She generally feels weak but is able to stand from a seated position and generally move around without any difficulty. She denies any palpitations and denies any chest pain, but did have chest pain a few weeks ago. REVIEW OF SYSTEMS: All systems were reviewed and are negative except for that mentioned in the history of present illness. PAST MEDICAL HISTORY: Significant for depression and hypokalemia. PAST SURGICAL HISTORY: She has had a cholecystectomy, hysterectomy. She had an AV fistula placed and then removed. ALLERGIES: TO MORPHINE, LASIX, AND ADHESIVES. SOCIAL HISTORY: She is . She is a full code. She occasionally takes alcohol. She smokes about five cigarettes a day. FAMILY HISTORY: Significant for diabetes and hypertension, and she said her mother had colon cancer. CURRENT MEDICATIONS: Include: 1. Pantoprazole 40 mg daily. 2. Atorvastatin 10 mg daily. 3. Sertraline 50 mg daily. 4. Bupropion 150 mg once daily. 5. Potassium chloride 20 mEq, she says eight times a day. PHYSICAL EXAMINATION: GENERAL: She is alert and oriented x4, in no acute distress. VITAL SIGNS: Blood pressure was 121/71, heart rate 72, respiratory rate of 18, temperature is 98, and O2 saturation is 98% on room air. HEENT: Pupils are equal, round, and reactive. Extraocular muscles are intact. Her sclerae are anicteric. Throat, there is no erythema, no exudates. NECK: No adenopathy. No bruits. LUNGS: Clear to auscultation. There is no wheezing, no rales, no rhonchi. CARDIOVASCULAR: She has a normal S1, S2. There is no S3 or S4. No murmurs, clicks, or rubs. ABDOMEN: Soft, nontender, and nondistended. Positive for bowel sounds. There is no rebound, no guarding, no organomegaly. EXTREMITIES: There is no edema. No calf tenderness. No joint effusions. NEUROLOGIC: Nonfocal. SKIN AND INTEGUMENT: No skin changes. No rash. LABORATORY RESULTS: White blood cell count 8, hemoglobin 12.5, hematocrit is 36.5, and platelet count was 308. Sodium 139, potassium 2.5, chloride is 100, CO2 is 21, BUN of 7, creatinine 0.74, glucose is 115. ASSESSMENT: This is a very pleasant 48-year-old female, who has a history of hypokalemia. She is being admitted for recurrence. The etiology of which is unclear and still under investigation. She will be started on IV fluids with potassium supplementation and will do this both IV and orally. Nephrology has been consulted and further recommendations to follow. Job ID: [id number]
[2019-10-03 19:27] LABS: Potassium, Urine Less than 10.0 mmol/L; Sodium, Urine Less than 20 mmol/L (Not Available)
[2019-10-03] MEDS: Bupropion 150 MG SR TAB PO SCH (20:59)
[2019-10-03] MEDS: Famotidine 20 MG TAB PO SCH (20:59)
[2019-10-03] MEDS ORDERED: Atorvastatin Calcium 10 MG TAB PO SCH (21:00)
[2019-10-04 05:18] LABS: #Eosinphils 0.2 thou/uL (0.0-0.7); #Monocytes 0.5 thou/uL (0.11-0.59); #Neutrophils 2.9 thou/uL (1.40-6.50); %Basophils 0.8 % (0.0-1.0); %Eosinophils 4.1 % (0.0-10.0); %Lymphocytes 35.1 % (21.0-51.0); %Monocytes 9.4 % (0.0-10.0); %Neutrophils 50.6 % (42.0-75.0); Hemoglobin 10.1 g/dL (12.0-16.0); Mean Corpuscular HGB CONC 31.8 g/dL (32.0-36.0); Mean Corpuscular Hemoglobin 30.2 pg (27.0-31.0); Mean Corpuscular Volume 94.8 fL (78.0-98.0); Mean Platelet Volume 7.6 fL (7.4-10.4); Platelet Count 270 thou/uL (130-400); RBC Distribution Width 11.9 % (11.5-14.5); Red Blood Cell (RBC) Count 3.34 mill/uL (4.20-5.40); White Blood Cell (WBC) Count 5.7 thou/uL (4.8-10.8)
[2019-10-04 05:42] LABS: Anion Gap 10 mmol/L (10-20); BUN (Urea Nitrogen) 5 mg/dL (7.0-18.7); Calc. Creatinine Clearance 151 mL/min (70-130); Calcium 7.8 mg/dL (7.8-10.44); Carbon Dioxide 23 mmol/L (22-29); Chloride 110 mmol/L (98-107); Estimated GFR-MDRD Greater than 90; Glucose 89 mg/dL (70-105); Potassium 3.4 mmol/L (3.5-5.1); Sodium 140 mmol/L (136-145)
[2019-10-04] MEDS: Bupropion 150 MG SR TAB PO SCH (08:32)
[2019-10-04] MEDS: Famotidine 20 MG TAB PO SCH (08:32)
[2019-10-04] MEDS: Potassium Chloride 20 MEQ TAB PO SCH ×3 (08:33→16:13)
[2019-10-04] MEDS ORDERED: Enoxaparin Sodium 40 MG/0.4 ML SYRINGE SC SCH (09:00)
[2019-10-04] MEDS ORDERED: Potassium Chloride 10 MEQ in Premix Bag 1 BAG IVPB SCH (12:45)
[2019-10-04] MEDS ORDERED: Potassium Chloride 20 MEQ TAB PO SCH (13:00)
--- NOTE | 2019-10-04 15:30 | PRG ---
DATE OF SERVICE: 10/04/2019 SUBJECTIVE: Patient was seen and examined at bedside and overnight events noted. Patient denies any shortness of breath or chest pain or palpitation. No history of nausea or vomiting or diarrhea or fever or chills or cramps. OBJECTIVE: GENERAL: This is a well built female, in no apparent distress. VITAL SIGNS: Temperature 98.3. Heart rate 70. Respiratory rate 18. Blood pressure 109/56. HEENT: Atraumatic, normocephalic. Oral mucosa is moist NECK: Supple. CARDIOVASCULAR: S1, S2 heard. Rate and rhythm regular. RESPIRATORY: Clear to auscultation. GASTROINTESTINAL: Abdomen is soft. MUSCULOSKELETAL: No tenderness. No edema. DERMATOLOGIC: No skin rash. NEUROLOGIC: Alert and awake and oriented X3. No focal neurologic deficits. Moving all the extremities. PSYCHIATRIC: Mood and affect normal. LABORATORY DATA: Potassium is 3.4, BUN is 5, creatinine 0.59. ASSESSMENT AND PLAN: 1. Hypokalemia, replace. 2. Alkalosis. 3. Edema. 4. Hypertension. Hypokalemia is better. Urine studies suggest no renal loss of potassium, might need a GI consult. The patient has complained of some GI upset. She has followed up with Endocrinology as outpatient. So if the workup ends up negative we will also talk with her PCP. Continue on potassium supplements for now. Job ID: [id number]
[2019-10-04 16:19] VITALS: BP 103/55; TEMP 98.2
--- NOTE | 2019-10-04 22:06 | DIS ---
DATE OF ADMISSION: 10/03/2019 DATE OF DISCHARGE: 10/04/2019 DISCHARGE DIAGNOSES: As of the following, hypokalemia. HOSPITAL COURSE: The patient is a 48-year-old female, who has been to the hospital multiple times for hypokalemia. She stated that she was supposed to follow up with her manager rn, which is going to be next week. She had some blood work done and was told to come into the ER for low potassium levels. She has been taking her potassium pills as prescribed and she has been trying to eat foods with potassium. She denies any symptoms. She was given potassium replacement supplements, which she did well. Her discharge potassium was 3.4. She was given an additional 40 and another 10 IV of potassium. HOME MEDICATIONS: 1. Potassium chloride liquid 40 mEq q.i.d. 2. Lipitor 10 daily. 3. Pantoprazole 40 mg daily. 4. Zoloft 50 mg daily. 5. Bupropion 1 tab p.o. b.i.d. PHYSICAL EXAMINATION: VITAL SIGNS: Temperature 98.2, 70, 20, 98% on room air, 103/56. GENERAL: She is awake, alert, and oriented x3, is in no pain distress. CV: S1, S2 present. No murmurs, rubs, or gallops. All the questions were answered. Her initial potassium was 2.5. Repeat after replacement was 3.4. She has had multiple testing. She also had a urine potassium, which was less than 10 two times. She is going to follow up with Endocrinology. Job ID: [id number]
== END 2019-10-04 17:08 | disposition home or self-care (01) | DRG 641 ==
LOC: ERS 09:19 → 2NO 12:39
PROVIDERS: ADMIT Internal Medicine; ATTEND Internal Medicine
DX: E87.6 Hypokalemia (principal); F32.9 Major depressive disorder, single episode, unspecified; F17.210 Nicotine dependence, cigarettes, uncomplicated; E87.3 Alkalosis; I10 Essential (primary) hypertension; K21.9 Gastro-esophageal reflux disease without esophagitis; Z90.49 Acquired absence of other specified parts of digestive tract; Z90.710 Acquired absence of both cervix and uterus; Z88.5 Allergy status to narcotic agent; Z88.8 Allergy status to other drugs, medicaments and biological substances; Z91.040 Latex allergy status; Z79.899 Other long term (current) drug therapy
CPT/HCPCS: 36415; 80048; 82436; 82570; 83735; 84133; 84300; 84484; 85025; 93005; 96365; 96367; J1650; J3475; J3480

== ENCOUNTER 2019-11-21 09:13 | Inpatient (IN) | payer OTHER ==
[2019-11-21 09:51] LABS: #Basophils 0.1 thou/uL (0.0-0.2); #Eosinphils 0.2 thou/uL (0.0-0.7); #Lymphocytes 1.9 thou/uL (1.20-3.40); #Monocytes 0.7 thou/uL (0.11-0.59); #Neutrophils 5.3 thou/uL (1.40-6.50); %Basophils 0.6 % (0.0-1.0); %Eosinophils 2.9 % (0.0-10.0); %Lymphocytes 22.8 % (21.0-51.0); %Monocytes 8.5 % (0.0-10.0); %Neutrophils 65.1 % (42.0-75.0); Hemoglobin 12.9 g/dL (12.0-16.0); Mean Corpuscular HGB CONC 33.8 g/dL (32.0-36.0); Mean Corpuscular Hemoglobin 31.6 pg (27.0-31.0); Mean Corpuscular Volume 93.6 fL (78.0-98.0); Mean Platelet Volume 7.5 fL (7.4-10.4); Platelet Count 367 thou/uL (130-400); RBC Distribution Width 11.9 % (11.5-14.5); Red Blood Cell (RBC) Count 4.09 mill/uL (4.20-5.40); White Blood Cell (WBC) Count 8.1 thou/uL (4.8-10.8)
[2019-11-21 10:06] LABS: ALT (SGPT) 21 U/L (8-55); AST (SGOT) 21 U/L (5-34); Albumin 4.3 g/dL (3.5-5.0); Alkaline Phosphatase 86 U/L (40-110); Anion Gap 10 mmol/L (10-20); BUN (Urea Nitrogen) 10 mg/dL (7.0-18.7); Bilirubin, Total 0.3 mg/dL (0.2-1.2); Calc. Creatinine Clearance 0 mL/min (70-130); Calcium 9.5 mg/dL (7.8-10.44); Carbon Dioxide 32 mmol/L (22-29); Chloride 99 mmol/L (98-107); Estimated GFR-MDRD 83; Globulin 2.9 g/dL (2.4-3.5); Glucose 90 mg/dL (70-105); Protein, Total 7.2 g/dL (6.0-8.3); Sodium 139 mmol/L (136-145)
[2019-11-21 10:10] LABS: Potassium 2.1 mmol/L (3.5-5.1)
[2019-11-21] MEDS ORDERED: Potassium Chloride 20 MEQ TAB ONE (10:38)
[2019-11-21] MEDS ORDERED: Potassium Chloride 40 MEQ in Sodium Chloride 0.9% 250 ML 250 ML IV SCH (10:45)
--- NOTE | 2019-11-21 10:55 | CON ---
DATE OF CONSULTATION: REASON FOR CONSULTATION: Hypokalemia. HISTORY OF PRESENT ILLNESS: This is a 49-year-old female, who presents to the hospital with a potassium of 2.1. The patient is taking 40 mEq of potassium t.i.d. The patient denies any nausea, vomiting, or diarrhea. PAST MEDICAL HISTORY: Hypertension, hypokalemia, and hysterectomy. MEDICATIONS: Home medications: Reviewed. Hospital medications: Reviewed. ALLERGIES: REVIEWED. REVIEW OF SYSTEMS: A 15-point review of systems was performed, negative except for positives noted above. HEENT: Eyes intact, no diplopia. Ears: No hearing loss or earache. Nose: No discharge or bleeding. Chest: No cough or phlegm. Abdomen: No nausea or vomiting. Genitourinary: No hematuria. No Zaragoza catheter. Musculoskeletal: No low back pain. No joint swelling or pain. Neurological: No syncope. No seizures. Skin: No complaints of rash or itching. Psychiatric: No depression. Constitutional: No weight loss or loss of appetite. PHYSICAL EXAMINATION: GENERAL: The patient is awake and alert. VITAL SIGNS: Afebrile, pulse 100, breathing at 16, and blood pressure 130/70. HEENT: Head, normocephalic and atraumatic. Eyes, intact, no ulcers. Nose, intact, no ulcers. Ears, intact, no ulcers. Neck: Supple. No JVD. Chest: Symmetrical and clear. Cardiovascular: Shows S1 and S2, no rub, no murmur. Gastrointestinal: Abdomen is soft, bowel sounds positive. Extremities: Show no edema or ulcers. Skin: Shows no rash or petechiae. Musculoskeletal: Shows no joint swelling or stiffness. Genitourinary: Shows no Zaragoza or CVA tenderness. Neurologic: Motor intact. Cranial nerves intact. ASSESSMENT AND RECOMMENDATIONS: 1. Hypokalemia. We would recommend aggressive potassium replacement. 2. Metabolic alkalosis. 3. Bartter and Gitelman syndrome is always a possibility. We will follow closely. Job ID: [id number]
--- NOTE | 2019-11-21 11:02 | PDOC.HHP ---
Hospitalist HPI - History of Present Illness Abn Labs History of Present Illness: Patient is 49-year-old female with chronic hypokalemia presented to the hospital with abnormal labs. She was found to have potassium of 2.2 as outpatient. She has a history of chronic hypokalemia and is currently on 40 mEq of potassium chloride 4 times a day. She has had extensive work-up for this in the past by director agricultural services. Patient denies any nausea vomiting diarrhea or loss of appetite. No fever chills sick contacts reported. Patient denies any neurologic symptoms including lightheadedness dizziness or syncope. Patient is compliant with all of her medications. In the emergency room she was found to have potassium of 2.1. She was started on potassium supplementation. ED Course: VITAL SIGNS SunNov 21, 2019 09:14 FRANCOIS Barboza Mckenna BP: 103/74, Pulse: 74, Resp: 16, Temp: 97.9 (Oral), Pain: 0, O2 sat: 98 on ( Room Air), Time: 11/21/2019 09:14. VITAL SIGNS SunNov 21, 2019 10:00 FRANCOIS Solorio Macie BP: 104/65, MAP: 78, Pulse: 65, Resp: 15, Pain: 0, O2 sat: 97 on (Room Air), Time: 11/21/2019 10:00. VITAL SIGNS SunNov 21, 2019 11:00 FRANCOIS Solorio Macie BP: 104/65, Pulse: 66, Resp: 17, Pain: 0, O2 sat: 99 on (Room Air), Time: 2019 11:00. VITAL SIGNS SunNov 21, 2019 12:00 FRANCOIS Solorio Macie BP: 107/70, Pulse: 69, Resp: 19, Pain: 0, O2 sat: 98 on (Room Air), Time: 2019 12:00. VITAL SIGNS SunNov 21, 2019 13:00 FRANCOIS Solorio Macie BP: 111/69, Pulse: 60, Resp: 14, Pain: 0, O2 sat: 100 on (Room Air), Time: 2019 13:00. VITAL SIGNS SunNov 21, 2019 13:38 FRANCOIS Solorio Macie Temp: 98.1 (Oral), Time: 11/21/2019 13:38. VITAL SIGNS SunNov 21, 2019 14:00 FRANCOIS Solorio Macie BP: 108/66, Pulse: 67, Resp: 13, Pain: 0, O2 sat: 98 on (Room Air), Time: 2019 14:00. VITAL SIGNS SunNov 21, 2019 15:00 FRANCOIS Solorio Macie BP: 110/70, Pulse: 84, Resp: 19, Pain: 0, O2 sat: 95 on (Room Air), Time: 2019 15:00. MEDICATION ADMINISTRATION SUMMARY SunNov 21, 2019 17:02 Drug Name Dose Ordered Route Status Time *potassium chloride intravenous 40 mEq IV Piggy Back Given 11:30 11/21/2019 potassium chloride oral 40 mEq Oral Given 11:30 11/21/2019 Hospitalist ROS - Review of Systems Respiratory: denies: cough, dry, shortness of breath, hemoptysis, SOB with excertion, pleuritic pain, sputum, wheezing, other Cardiovascular: denies: chest pain, palpitations, orthopnea, paroxysmal noc. dyspnea, edema, light headedness, other Gastrointestinal: denies: nausea, vomiting, abdominal pain, diarrhea, constipation, melena, hematochezia, other Genitourinary: denies: dysuria, frequency, incontinence, hematuria, retention, other All other systems reviewed; all pertinent +/- noted in HPI/Subj - Medication Medications: HOME MEDICATIONS: 1. Potassium chloride liquid 40 mEq q.i.d. 2. Lipitor 10 daily. 3. Pantoprazole 40 mg daily. 4. Zoloft 50 mg daily. 5. Bupropion 1 tab p.o. b.i.d. Hospitalist History - Past Medical History Other Medical History: PAST MEDICAL HISTORY: Chronic hypokalemia with recent hospitalization, GERD, Anxiety, family history of colon cancer, history of colon polyps PAST SURGICAL HISTORY: EGD 2018, colonoscopy 2019, cholecystectomy, hysterectomy. h/o AV fistula placed with subsequent removal. History of partial colectomy for colon mass in 1996 per patient report. ALLERGIES: TO MORPHINE, LASIX, AND ADHESIVES. SOCIAL HISTORY: She is . She is a full code. She occasionally takes alcohol. She smokes about five cigarettes a day. FAMILY HISTORY: Significant for diabetes and hypertension, and she said her mother had colon cancer. - Exam General Appearance: NAD Eye: PERRL, anicteric sclera ENT: normocephalic atraumatic, no oropharyngeal lesions Neck: supple, symmetric, no JVD Heart: RRR, no gallops, no rubs, normal peripheral pulses Respiratory: CTAB, no rales, no ronchi, normal chest expansion Gastrointestinal: soft, non-tender, non-distended, normal bowel sounds, no guarding, no rigidity Extremities: no cyanosis, no clubbing, no edema Neurological: cranial nerve grossly intact, normal sensation to touch, no focal deficits Musculoskeletal: normal tone, normal strength Psychiatric: normal affect, A&O x 3 Hospitalist Results - Labs Result Diagrams: 11/21/19 09:37 11/22/19 13:53 Lab results: WBC 8.1 thou/uL (4.8-10.8) 11/21/19 09:37 Hgb 12.9 g/dL (12.0-16.0) 11/21/19 09:37 Hct 38.3 % (36.0-47.0) 11/21/19 09:37 MCV 93.6 fL (78.0-98.0) 11/21/19 09:37 Plt Count 367 thou/uL (130-400) 11/21/19 09:37 Neutrophils % 65.1 % (42.0-75.0) 11/21/19 09:37 Sodium 139 mmol/L (136-145) 11/21/19 09:37 Potassium 2.1 mmol/L (3.5-5.1) L* 11/21/19 09:37 Chloride 99 mmol/L (98-107) 11/21/19 09:37 Carbon Dioxide 32 mmol/L (22-29) H 11/21/19 09:37 BUN 10 mg/dL (7.0-18.7) 11/21/19 09:37 Creatinine 0.74 mg/dL (0.6-1.1) 11/21/19 09:37 Glucose 90 mg/dL (70-105) 11/21/19 09:37 Calcium 9.5 mg/dL (7.8-10.44) 11/21/19 09:37 Total Bilirubin 0.3 mg/dL (0.2-1.2) 11/21/19 09:37 AST 21 U/L (5-34) 11/21/19 09:37 ALT 21 U/L (8-55) 11/21/19 09:37 Alkaline Phosphatase 86 U/L (40-110) 11/21/19 09:37 Serum Total Protein 7.2 g/dL (6.0-8.3) 11/21/19 09:37 Albumin 4.3 g/dL (3.5-5.0) 11/21/19 09:37 - EKG Interpretation EKG: SR - reviewed by me Hospitalist H&P A/P - Plan Plan: Acute on chronic hypokalemia GERD Anxiety Dehydration with metabolic alkalosis Tobacco dependence Family history of colon cancer History of colonic polyp requiring partial colon resection Plan: Patient will be monitored on the telemetry unit. She is currently receiving 40 M EQ of potassium chloride through intravenously. She also received 40 M EQ in the emergency room. Will continue her home replacement at 40 meq use 4 times a day. We will also aggressively replace potassium intravenously. Will check magnesium and phosphorus. Will check urine creatinine and urine potassium. Urine potassium was less than 10 last admission. Renin and aldosterone was recently checked. The cause of hypokalemia is probably GI in origineither malabsorption or increased GI loss. Recheck potassium in a.m. Tobacco cessation was emphasized. Restart home medications once verified Patient will require 2 to 3 days for stabilization.
[2019-11-21] MEDS ORDERED: Ondansetron PF 4 MG/2 ML Vial IVP PRN (11:24)
[2019-11-21] MEDS ORDERED: Calcium Carbonate 500 MG ChewTAB PO PRN (11:24)
[2019-11-21] MEDS ORDERED: Acetaminophen 325 MG TAB PO PRN (11:24)
[2019-11-21 11:30] LABS: Phosphorus 2.7 mg/dL (2.3-4.7)
[2019-11-21] MEDS ORDERED: Potassium Chloride 20 MEQ TAB PO SCH (13:00)
[2019-11-21] MEDS ORDERED: Magnesium 2 GM/50 ML 2 GM in Premix Bag 1 BAG IVPB SCH (13:15)
[2019-11-21] MEDS ORDERED: Potassium Chloride 40 MEQ in Sodium Chloride 0.9% 250 ML 250 ML IVPB SCH ×2 (16:00→21:00)
[2019-11-21 16:10] VITALS: BMI 24.5
[2019-11-21] MEDS: K-Phos Neutral 250 MG TAB PO SCH ×3 (17:14→17:16)
[2019-11-21 19:59] LABS: Creatinine, Urine 46.46 mg/dL (47-110); Potassium, Urine Less than 10.0 mmol/L
[2019-11-21] MEDS ORDERED: K-Phos Neutral 250 MG TAB PO SCH (21:00)
[2019-11-21] MEDS: Bupropion 150 MG SR TAB PO SCH (22:06)
[2019-11-22 05:02] LABS: Anion Gap 11 mmol/L (10-20); BUN (Urea Nitrogen) 8 mg/dL (7.0-18.7); Calc. Creatinine Clearance 121 mL/min (70-130); Calcium 8.6 mg/dL (7.8-10.44); Carbon Dioxide 28 mmol/L (22-29); Chloride 103 mmol/L (98-107); Estimated GFR-MDRD 89; Glucose 90 mg/dL (70-105); Sodium 139 mmol/L (136-145)
[2019-11-22] MEDS: K-Phos Neutral 250 MG TAB PO SCH ×3 (08:39→15:54)
[2019-11-22] MEDS: Atorvastatin Calcium 10 MG TAB PO SCH (08:40)
[2019-11-22] MEDS: Bupropion 150 MG SR TAB PO SCH ×2 (08:40→20:28)
[2019-11-22] MEDS ORDERED: Enoxaparin Sodium 40 MG/0.4 ML SYRINGE SC SCH (09:00)
[2019-11-22] MEDS ORDERED: Prevnar 13-Val Conj/PF 0.5 ML SYRINGE IM ONE (09:00)
[2019-11-22] MEDS: Potassium Chloride 40 MEQ in Sodium Chloride 0.9% 250 ML 250 ML IVPB SCH ×2 (10:44→15:54)
--- NOTE | 2019-11-22 13:50 | PRG ---
DATE OF SERVICE: 11/22/2019 SUBJECTIVE: A 49-year-old female being seen for hypokalemia. The patient denies any nausea, vomiting, or chest pain. OBJECTIVE: GENERAL: The patient is awake and alert. VITAL SIGNS: Afebrile. Pulse 75, breathing 16, blood pressure 107/64. HEENT: Head normocephalic and atraumatic. Eyes intact, no ulcers. Nose intact, no ulcers. Ears intact, no ulcers. NECK: Supple. No JVD. CHEST: Symmetrical and clear. CARDIOVASCULAR: Shows S1 and S2, no rub, no murmur. GASTROINTESTINAL: Abdomen is soft, bowel sounds positive. EXTREMITIES: Show no edema or ulcers. SKIN: Shows no rash or petechiae. MUSCULOSKELETAL: Shows no joint swelling or stiffness. GENITOURINARY: Shows no Zaragoza or CVA tenderness. NEUROLOGIC: Motor intact. Cranial nerves intact. LABORATORY DATA: Reviewed. ASSESSMENT AND PLAN: 1. Stage I chronic kidney disease, stable. 2. Hypertension, stable. 3. Hypokalemia, improved. I recommend aggressive potassium replacement. Job ID: [id number]
[2019-11-22 14:30] LABS: Anion Gap 12 mmol/L (10-20); BUN (Urea Nitrogen) 7 mg/dL (7.0-18.7); Calc. Creatinine Clearance 110 mL/min (70-130); Carbon Dioxide 29 mmol/L (22-29); Chloride 104 mmol/L (98-107); Estimated GFR-MDRD 79; Glucose 87 mg/dL (70-105); Potassium 3.7 mmol/L (3.5-5.1); Sodium 141 mmol/L (136-145)
[2019-11-22 14:52] LABS: SARS-CoV-2 MS2 Positive; SARS-CoV-2 N Gene Negative; SARS-CoV-2 S Gene Negative; SARS-CoV-2 by NAA Not Detected (NotDetected); SARS-CoV-2 orf1ab Negative
--- NOTE | 2019-11-22 15:24 | PDOC.HOSPP ---
- Subjective Encounter Date: 11/22/19 Encounter Time: 10:00 Subjective: Patient seen and examined for hypokalemia. Denies any nausea vomiting or diarrhea. Symptomatically she feels slightly better. - Objective Vital Signs & Weight: Vital Signs (12 hours) Temp Pulse Resp BP BP Pulse Ox 11/22/19 11:36 97.9 F 88 16 97/55 L 98 11/22/19 07:37 97.8 F 76 18 107/64 98 11/22/19 05:52 98 11/22/19 05:17 97.6 F 76 17 96/52 L 98 Weight Weight 176 lb 5.917 oz I&O: 11/21/19 11/22/19 11/23/19 06:59 06:59 06:59 Intake Total 1868 Balance 1868 Result Diagrams: 11/21/19 09:37 11/22/19 13:53 Additional Labs: Laboratory Tests 11/21/19 11/21/19 11/22/19 09:37 19:19 04:21 Potassium 2.1 L* 3.0 L Urine Potassium Less than 10.0 Hospitalist ROS - Review of Systems Respiratory: denies: cough, dry, shortness of breath, hemoptysis, SOB with excertion, pleuritic pain, sputum, wheezing, other Cardiovascular: denies: chest pain, palpitations, orthopnea, paroxysmal noc. dyspnea, edema, light headedness, other Gastrointestinal: denies: nausea, vomiting, abdominal pain, diarrhea, constipation, melena, hematochezia, other - Medication Medications: Active Medications Generic Name Dose Route Start Last Admin Trade Name Freq PRN Reason Stop Dose Admin Atorvastatin Calcium 10 mg 11/22/19 09:00 11/22/19 08:40 Lipitor PO 10 mg DAILY KIRAN Administration Bupropion HCl 150 mg 11/21/19 21:00 11/22/19 08:40 Wellbutrin Sr PO 150 mg BID KIRAN Administration Potassium Chloride 40 meq/ 270 mls @ 67.5 mls/hr 11/22/19 09:30 11/22/19 10: 44 Sodium Chloride IVPB 11/22/19 19:29 270 mls Q6H KIRAN Administration Phosphorus 500 mg 11/21/19 12:00 11/22/19 12:06 Kphos Neutral PO 500 mg TID-WM KIRAN Administration Potassium Chloride 40 meq 11/21/19 17:00 11/22/19 12:06 Klor-Con PO 40 meq QID-WM KIRAN Administration Sertraline HCl 50 mg 11/22/19 09:00 11/22/19 08:40 Zoloft PO 50 mg DAILY KIRAN Administration - Exam General Appearance: NAD Neck: supple, no JVD Heart: RRR, no gallops Respiratory: no wheezes, no ronchi Gastrointestinal: non-tender, normal bowel sounds (Shaw) Extremities: no cyanosis Hosp A/P - Plan DVT proph w/SCDs Acute on chronic hypokalemia GERD Anxiety Dehydration with metabolic alkalosis Tobacco dependence Family history of colon cancer History of colonic polyp requiring partial colon resection Plan: Potassium today was 3.0. Will continue oral supplementation with 40 mEq 4 times a day. We will also add intravenous potassium supplementation with 40 M EQ for 3 doses today. Will recheck potassium in a.m. Continue other medications as above. Protonix on hold at this time. Urine potassium was less than 10. Discharge probably in a.m. if stable
[2019-11-22] MEDS ORDERED: Potassium Chloride 40 MEQ in Sodium Chloride 0.9% 250 ML 250 ML IVPB SCH (20:00)
[2019-11-23 05:29] LABS: Anion Gap 11 mmol/L (10-20); BUN (Urea Nitrogen) 6 mg/dL (7.0-18.7); Calc. Creatinine Clearance 131 mL/min (70-130); Calcium 8.4 mg/dL (7.8-10.44); Carbon Dioxide 22 mmol/L (22-29); Chloride 111 mmol/L (98-107); Estimated GFR-MDRD Greater than 90; Glucose 84 mg/dL (70-105); Sodium 140 mmol/L (136-145)
[2019-11-23] MEDS: K-Phos Neutral 250 MG TAB PO SCH ×2 (08:46→11:23)
[2019-11-23] MEDS: Bupropion 150 MG SR TAB PO SCH (08:47)
[2019-11-23] MEDS: Atorvastatin Calcium 10 MG TAB PO SCH (08:47)
[2019-11-23 11:23] VITALS: BP 110/55; TEMP 98
--- NOTE | 2019-11-23 12:57 | DIS ---
DATE OF ADMISSION: 11/21/2019 DATE OF DISCHARGE: 11/23/2019 DISCHARGE DISPOSITION: Home. FOLLOWUP: 1. Follow up with Dr. Posada in 1 week. 2. Follow up with Dr. Gustafson in 1 week. A repeat basic metabolic profile is recommended. Primary care physician advised to follow. BRIEF HOSPITAL COURSE: The patient is a 49-year-old female with chronic hypokalemia, presented to the hospital with a potassium of 2.2 as outpatient. She is on potassium chloride 40 mEq four times a day. She has had extensive workup for this in the past. Please refer to the history and physical for further details. The patient was admitted to the hospital with a diagnosis of acute on chronic hypokalemia. She was started on IV potassium chloride with good improvement. Her potassium today was 4.0. Her oral potassium was also continued. She was advised to follow up with Nephrology as outpatient. She denies any concerns on the day of discharge. FINAL DIAGNOSES: 1. Acute on chronic hypokalemia. 2. Gastroesophageal reflux disease. 3. Anxiety. 4. Dehydration with metabolic acidosis. 5. Tobacco dependence. 6. Family history of colon cancer. 7. History of colonic polyp, requiring partial colon resection. SIGNIFICANT LABORATORY DATA: Urine potassium was less than 10. COVID testing was negative. Potassium on admission was 2.1, yesterday morning was 3.0, this morning was 4.0. WBC 8.1 with hemoglobin 12.9. The patient understands the above plan of care. Job ID: [id number]
--- NOTE | 2019-11-23 14:53 | PRG ---
DATE OF SERVICE: 11/23/2019 SUBJECTIVE: A 49-year-old female, being seen for hypokalemia. The patient denied nausea, vomiting, or chest pain. OBJECTIVE: General: The patient is awake and alert. Vital Signs: Afebrile, pulse 75, breathing 16, blood pressure 120/53. HEENT: Head normocephalic and atraumatic. Eyes intact, no ulcers. Nose intact, no ulcers. Ears intact, no ulcers. Neck: Supple. No JVD. Chest: Symmetrical and clear. Cardiovascular: Shows S1 and S2, no rub, no murmur. Gastrointestinal: Abdomen is soft, bowel sounds positive. Extremities: Show no edema or ulcers. Skin: Shows no rash or petechiae. Musculoskeletal: Shows no joint swelling or stiffness. Genitourinary: Shows no Zaragoza or CVA tenderness. Neurologic: Motor intact. Cranial nerves intact. LABORATORY DATA: Reviewed. ASSESSMENT AND PLAN: 1. Chronic kidney disease, stage 1, stable. 2. Hypokalemia, resolved. 3. Hypertension, stable. 4. The patient will follow up with Dr. Gustafson. Job ID: [id number]
== END 2019-11-23 12:45 | disposition home or self-care (01) | DRG 641 ==
LOC: ERS 09:13 → ERHOLD 11:10 → 2NO 15:52
PROVIDERS: ADMIT Internal Medicine; ATTEND Internal Medicine
DX: E87.6 Hypokalemia (principal); K21.9 Gastro-esophageal reflux disease without esophagitis; E87.3 Alkalosis; E87.4 Mixed disorder of acid-base balance; F41.9 Anxiety disorder, unspecified; E86.0 Dehydration; Z20.828 Contact with and (suspected) exposure to other viral communicable diseases; F17.210 Nicotine dependence, cigarettes, uncomplicated; F32.9 Major depressive disorder, single episode, unspecified; N18.1 Chronic kidney disease, stage 1; I12.9 Hypertensive chronic kidney disease with stage 1 through stage 4 chronic kidney disease, or unspecified chronic kidney disease; Z90.49 Acquired absence of other specified parts of digestive tract; Z86.010 Personal history of colon polyps; Z90.710 Acquired absence of both cervix and uterus; Z88.5 Allergy status to narcotic agent; Z88.8 Allergy status to other drugs, medicaments and biological substances; Z79.899 Other long term (current) drug therapy
CPT/HCPCS: 36415; 80048; 82570; 83735; 84100; 84133; 85025; 87635; 93005; 96365; 96366; J3475; J3480; J7050; U0003

== ENCOUNTER 2019-12-24 07:30 | Outpatient (CLI) | payer OTHER ==
--- NOTE | 2019-12-24 08:55 | RAD ---
LUMBAR SPINE 3 VIES INCLUDING STANDING FLEXION AND EXTENSION LATERAL VIEWS: HISTORY: Right foot drop, numbness in right leg. COMPARISON: 12/08/2019. FINDINGS: Mild retrolisthesis of L3 on L4 and l4 on L5 slightly more prominent with extension. No evidence for other abnormal translation between flexion and extension. Generalized spondylosis. IMPRESSION: Overall stable exam. Generalized spondylosis. POS: RRE
--- NOTE | 2019-12-24 09:21 | MRI ---
LUMBAR SPINE MRI WITHOUT IV CONTRAST: HISTORY: Numbness right leg, right foot drop. FINDINGS: There are generalized disk desiccation changes and ligament and facet hypertrophic changes throughout . Conus medullaris region is unremarkable. At T11-T12, there is some moderate central canal and lateral recess stenosis from disk-osteophytosis and prominent facet arthrosis. At T12-L1 disk: No significant stenosis. At L1-L2 disk: Moderate bilateral recess stenosis. L2-L3 disk: Moderate bilateral recess stenosis and bilateral foraminal stenosis with borderline cent ral canal stenosis. L3-L4 disk: Mild bilateral recess and central canal stenosis and foraminal stenosis. L4-L5 disk: Central annular fissure. Moderate to severe central canal and lateral recess stenosis a nd moderate bilateral foraminal stenosis, worse on the left side. L5-S1 disk: Diffuse disk-osteophytosis without significant central canal or lateral recess stenosis but with moderate to severe left foraminal stenosis. No evidence for abnormal marrow edema. IMPRESSION: Multilevel variable severity canal, lateral recess, and foraminal stenosis as above. POS: RRE
== END 2019-12-24 07:31 | disposition home or self-care (01) ==
LOC: TBSIIMAG 07:30
PROVIDERS: ATTEND Neurological Surgery
DX: R20.0 Anesthesia of skin (principal); M21.371 Foot drop, right foot; M47.816 Spondylosis without myelopathy or radiculopathy, lumbar region; M48.061 Spinal stenosis, lumbar region without neurogenic claudication; M48.07 Spinal stenosis, lumbosacral region
CPT/HCPCS: 72100; 72148

== ENCOUNTER 2020-01-17 11:48 | Emergency (ER) | payer OTHER ==
[2020-01-17 12:17] LABS: #Eosinphils 0.3 thou/uL (0.0-0.7); #Lymphocytes 2.5 thou/uL (1.20-3.40); #Monocytes 1.1 thou/uL (0.11-0.59); %Basophils 0.2 % (0.0-1.0); %Eosinophils 3.2 % (0.0-10.0); %Lymphocytes 28.2 % (21.0-51.0); %Monocytes 12.1 % (0.0-10.0); %Neutrophils 56.2 % (42.0-75.0); Mean Corpuscular HGB CONC 35.1 g/dL (32.0-36.0); Mean Corpuscular Hemoglobin 32.7 pg (27.0-31.0); Mean Corpuscular Volume 92.9 fL (78.0-98.0); Mean Platelet Volume 7.7 fL (7.4-10.4); Platelet Count 311 thou/uL (130-400); RBC Distribution Width 11.7 % (11.5-14.5); Red Blood Cell (RBC) Count 3.68 mill/uL (4.20-5.40); White Blood Cell (WBC) Count 8.9 thou/uL (4.8-10.8)
--- NOTE | 2020-01-17 12:26 | RAD ---
EXAM: Single view of the chest HISTORY: Hypokalemia and abnormal EKG COMPARISON: 06/06/2019 FINDINGS: Single view of the chest shows a normal sized cardiomediastinal silhouette. There is no tawny dence of consolidation, mass, or pleural effusion. Degenerative changes are seen in the spine. IMPRESSION: No evidence of acute cardiopulmonary disease
[2020-01-17 12:40] LABS: ALT (SGPT) 19 U/L (8-55); AST (SGOT) 21 U/L (5-34); Albumin 3.8 g/dL (3.5-5.0); Alkaline Phosphatase 79 U/L (40-110); Anion Gap 15 mmol/L (10-20); BUN (Urea Nitrogen) 11 mg/dL (7.0-18.7); Bilirubin, Total 0.2 mg/dL (0.2-1.2); Calc. Creatinine Clearance 0 mL/min (70-130); Calcium 8.6 mg/dL (7.8-10.44); Carbon Dioxide 20 mmol/L (22-29); Chloride 104 mmol/L (98-107); Estimated GFR-MDRD 82; Globulin 2.5 g/dL (2.4-3.5); Glucose 86 mg/dL (70-105); Protein, Total 6.3 g/dL (6.0-8.3); Sodium 136 mmol/L (136-145)
[2020-01-17] MEDS ORDERED: Potassium Chloride 20 MEQ TAB ONE (12:41)
[2020-01-17] MEDS ORDERED: Potassium Chloride 40 MEQ in Sodium Chloride 0.9% 250 ML 250 ML IVPB SCH (13:00)
== END 2020-01-17 19:10 | disposition home or self-care (01) ==
LOC: ERS 11:48
DX: E87.6 Hypokalemia (principal); E78.00 Pure hypercholesterolemia, unspecified; E78.5 Hyperlipidemia, unspecified; F41.9 Anxiety disorder, unspecified; F32.9 Major depressive disorder, single episode, unspecified; F17.210 Nicotine dependence, cigarettes, uncomplicated; Z79.899 Other long term (current) drug therapy
CPT/HCPCS: 36415; 71045; 83735; 93005; 96365; 96366; J3480; J7050